=== PATIENT | female | born 1995 | race Caucasian/White ===

== ENCOUNTER 2023-06-20 02:13 | Emergency (ER) | payer SELFPAY ==
[2023-06-20] VITALS (10 sets, daily range): BP systolic 97–113; BP diastolic 60–71; PULSE 78–105; RESP 15–24; TEMP 36.8; O2SAT 97–99
[2023-06-20 02:37] LABS: Abs Immature Grans 0.02 10^3/uL (0.0-0.06); Absolute Basophil Count 0.02 10^3/uL (0.0-0.2); Absolute Eosinophil Count 0.02 10^3/uL (0.0-0.7); Absolute Lymphocyte Count 1.23 10^3/uL (1.2-3.4); Absolute Monocyte Count 0.46 10^3/uL (0.1-0.8); Absolute Neutrophil Count 5.82 10^3/uL (1.2-6.7); Basophils % 0.3; Eosinophils % 0.3; HCT 35.8 % (36.0-46.0); HGB 12.4 g/dL (11.2-15.7); Immature Grans % 0.3; Lymphocytes % 16.2; MCH 30.8 pg (27.0-33.0); MCHC 34.6 % (32.0-36.0); MCV 89 fL (80-95); MPV 9.9 fL (8.0-11.0); Monocytes % 6.1; Neutrophils % 76.8; Platelet Count 263 10^3/uL (130-400); RBC 4.02 10^6/uL (3.93-5.22); RDW 11.7 % (11.7-14.6); RDW-SD 37.4 fL; WBC 7.57 10^3/uL (4.4-10.8)
[2023-06-20 02:48] LABS: Bilirubin Negative (Negative); Blood Negative (Negative); Clarity Clear (Clear); Glucose Negative (Negative); Ketones Trace mg/dL (Negative); Leukocyte Esterase Negative (Negative); Nitrite Negative (Negative); Specific Gravity 1.015 (1.005-1.025); Urobilinogen 0.2 mg/dL (Up to 0.2)
[2023-06-20] MEDS: Ketorolac 15 MG/ML VIAL IM (02:52)
[2023-06-20] MEDS: Normal Saline 1,000 ML 1000 ML IV (02:52)
[2023-06-20] MEDS: Ondansetron 4 MG/2 ML VIAL IVP (02:53)
[2023-06-20 03:03] LABS: ALT 31 U/L (14-59); AST 28 U/L (15-37); Albumin 4.3 g/dL (3.4-5.0); Alkaline Phosphatase 64 U/L (46-116); Anion Gap 12.7 mmol/L (3-11); BUN 15 mg/dL (7-18); CO2 24.3 mmol/L (21.0-32.0); CREATININE 0.8 mg/dL (0.55-1.02); Calcium 9.4 mg/dL (8.5-10.1); Chloride 104 mmol/L (98-107); Glucose 106 mg/dL (74-106); HCG Quant, Pregnancy 3 mIU/mL (1-3); Potassium 3.6 mmol/L (3.5-5.1); Sodium 141 mmol/L (136-145); Total Protein 8.1 g/dL (6.4-8.2)
--- NOTE | 2023-06-20 03:15 | W.ED.GENAD ---
Discharge Plan Disposition Patient Disposition: Home Condition: Good Discharge Details Clinical Impression: Abdominal pain ED Provider: Tootie Mims Discharge Instructions Instructions: Abdominal Pain (ED) Additional Instructions: Take tylenol and ibuprofen over the counter as needed for abdominal cramping. You can also try heat packs. Call your primary care doctor today to schedule an appointment to followup on your visit here. Return to the emergency department for new or worsening symptoms, including if your pain returns, you begin vomiting again while not intoxicated, or if you have any other concerns. Medical Decision Making 27yo previously healthy female presenting with lower abdominal cramping described as like bad period cramps starting this evening while at a wedding and drinking heavily. Also has N/V which she attributes to drinking. History from patient, at bedside, and EMS. Given 1g of tylenol by EMS during transport. Miscarried at approximately 10 weeks gestation roughly 4 weeks ago; had vaginal bleeding for ~ 10 days after that with no vaginal bleeding or discharge since then. Slightly tachycardiac, vital signs otherwise reassuring. Clinical intoxicated on exam, benign abdominal exam with no tenderness. Given IVFB and zofran for N/V (likely 2/t intoxication) and toradol for cramping. With benign abdominal exam will hold off on CT or US imaging; low suspcion for acute intrabdominal or intrapelvic pathology including appendicitis, obstruction, ectopic , ovarian cyst/torsion, etc. Labs as below, CBC & CMP reassuring, UA negative for infection, bHCG negative. On reassessment she reports feeling much better, no further vomiting, pain improved significantly. Repeat abdominal exam with no tenderness. Patient requesting discharge home which is reasonable. Sober friend arrived to bedside to drive them home. Ambulated out of department with steady gait. Discharged home; discharge instructions including return precautions were reviewed with patient who verbalized understanding. All questions were answered and they are in full agreement with the plan. Lab Data Lab results reviewed: Yes I reviewed the patient's lab results. Labs: Laboratory Tests Range/Units 06/20/23 06/20/23 06/20/23 02:30 02:30 02:38 WBC (4.4-10.8) 10^3/uL 7.57 RBC (3.93-5.22) 10^6/uL 4.02 Hgb (11.2-15.7) g/dL 12.4 Hct (36.0-46.0) % 35.8 L MCV (80-95) fL 89 MCH (27.0-33.0) pg 30.8 MCHC (32.0-36.0) % 34.6 RDW (11.7-14.6) % 11.7 Plt Count (130-400) 10^3/uL 263 MPV (8.0-11.0) fL 9.9 Immature Gran % 0.3 Neutrophils % 76.8 Lymphocytes % 16.2 Monocytes % 6.1 Eosinophils % 0.3 Basophils % 0.3 Nucleated RBC % (0.0-0.3) % 0.0 Absolute Neutrophils (1.2-6.7) 10^3/uL 5.82 Absolute Lymphocytes (1.2-3.4) 10^3/uL 1.23 Absolute Monocytes (0.1-0.8) 10^3/uL 0.46 Absolute Eosinophils (0.0-0.7) 10^3/uL 0.02 Absolute Basophils (0.0-0.2) 10^3/uL 0.02 Sodium (136-145) mmol/L 141 Potassium (3.5-5.1) mmol/L 3.6 Chloride (98-107) mmol/L 104 Carbon Dioxide (21.0-32.0) mmol/L 24.3 Anion Gap (3-11) mmol/L 12.7 H BUN (7-18) mg/dL 15 Creatinine (0.55-1.02) mg/dL 0.8 Est GFR (CKD-EPI 2020) (mL/min/1.73m2) 104.80 Glucose (74-106) mg/dL 106 Calcium (8.5-10.1) mg/dL 9.4 Total Bilirubin (0.2-1.0) mg/dL 1.0 AST (15-37) U/L 28 ALT (14-59) U/L 31 Alkaline Phosphatase (46-116) U/L 64 Total Protein (6.4-8.2) g/dL 8.1 Albumin (3.4-5.0) g/dL 4.3 Beta HCG, Quant (1-3) mIU/mL 3 Urine Color (Yellow) Yellow Urine Clarity (Clear) Clear Urine pH (5-8) 6.0 Ur Specific [place] (1.005-1.025) 1.015 Urine Protein (Negative) mg/dL Negative Urine Ketones (Negative) mg/dL Trace H Urine Blood (Negative) Negative Urine Nitrite (Negative) Negative Urine Bilirubin (Negative) Negative Urine Urobilinogen (Up to 0.2) mg/dL 0.2 Ur Leukocyte Esterase (Negative) Negative Urine Glucose (Negative) mg/dL Negative HPI General Mode of arrival: EMS. Date/Time Provider Initiated Documentation: 06/20/23 02:18. Limitations to Documentation: no limitations. Information obtained by: patient, family and EMS. HPI Narrative: 27yo previously healthy female presenting with lower abdominal cramping described as like bad period cramps starting this evening. Pain is severe, crampy, and comes in waves. Received 1g of tylenol from EMS during transport. Miscarried at approximately 10 weeks gestation roughly 4 weeks ago; had vaginal bleeding for ~ 10 days after that with no vaginal bleeding or discharge since then. Symptoms started while out at a wedding; has been drinking (4+ glasses of wine). Some nausea & vomiting tonight which attributes to drinking. She is otherwise in her usual state of health with no fevers, chill, rash, dysuria, hematuria, upper abdominal pain, or other concerns. Related Data Allergies Allergy/AdvReac Type Severity Reaction Status Date / Time No Known Allergies Allergy Verified 06/20/23 02:23 General Stated Complaint: Abd Prob JEANNIE: 3 Review of Systems Narrative: see HPI PFSH All Active Problems (Updated 06/20/23 @ 03:44 by Tootie Mims MD) Abdominal pain (Acute) Social History Smoking/Tobacco Use Status: Current every day Tobacco Type: e-cigarettes Smoking risk assessment performed?: Yes Alcohol Intake: current Alcohol Intake frequency: a few times a month Alcohol type: wine Drug use: Never Substance use type: does not use Do you feel safe at home: Yes Do you feel safe in your relationship?: Yes Exam Narrative Exam Narrative: General: Alert, well appearing, in no acute distress. Clinically intoxicated. Head: Normocephalic, atraumatic Neck: Trachea midline, Neck supple. ENT: MMM. No oropharygeal lesions or exudate. Cardiac: RRR, no murmurs appreciated Resp: No respiratory distress. CTAB. Abd: Soft, non-distended, nontender. : No suprapubic tenderness. No CVA tenderness. Extremities: No deformities. No peripheral edema. Neurologic: GCS 15. Moves all extremities freely against gravity Course Vital Signs Vital signs: Vital Signs Temperature 36.8 C 06/20/23 02:14 Pulse 97 H 06/20/23 02:14 Respiratory Rate 16 06/20/23 02:14 Blood Pressure 107/69 06/20/23 02:14 Pulse Oximetry 97 06/20/23 02:14 Temperature 36.8 C 06/20/23 02:14 Temperature Source Oral 06/20/23 02:14 Pulse 97 H 06/20/23 02:14 Respiratory Rate 16 06/20/23 02:14 Respiratory Effort Normal, Non-Labored 06/20/23 02:18 Blood Pressure 107/69 06/20/23 02:14 Blood Pressure Position Supine 06/20/23 02:14 Pulse Oximetry 97 06/20/23 02:14 Oxygen Delivery Method Room Air 06/20/23 02:14 Oxygen Flow Rate 0 06/20/23 02:14 Pain Level 8 06/20/23 02:14 Lab/Test Results Lab/Test Results: Laboratory Tests Range/Units 06/20/23 06/20/23 06/20/23 02:30 02:30 02:38 WBC (4.4-10.8) 10^3/uL 7.57 RBC (3.93-5.22) 10^6/uL 4.02 Hgb (11.2-15.7) g/dL 12.4 Hct (36.0-46.0) % 35.8 L MCV (80-95) fL 89 MCH (27.0-33.0) pg 30.8 MCHC (32.0-36.0) % 34.6 RDW (11.7-14.6) % 11.7 Plt Count (130-400) 10^3/uL 263 MPV (8.0-11.0) fL 9.9 Immature Gran % 0.3 Neutrophils % 76.8 Lymphocytes % 16.2 Monocytes % 6.1 Eosinophils % 0.3 Basophils % 0.3 Nucleated RBC % (0.0-0.3) % 0.0 Absolute Neutrophils (1.2-6.7) 10^3/uL 5.82 Absolute Lymphocytes (1.2-3.4) 10^3/uL 1.23 Absolute Monocytes (0.1-0.8) 10^3/uL 0.46 Absolute Eosinophils (0.0-0.7) 10^3/uL 0.02 Absolute Basophils (0.0-0.2) 10^3/uL 0.02 Sodium (136-145) mmol/L 141 Potassium (3.5-5.1) mmol/L 3.6 Chloride (98-107) mmol/L 104 Carbon Dioxide (21.0-32.0) mmol/L 24.3 Anion Gap (3-11) mmol/L 12.7 H BUN (7-18) mg/dL 15 Creatinine (0.55-1.02) mg/dL 0.8 Est GFR (CKD-EPI 2020) (mL/min/1.73m2) 104.80 Glucose (74-106) mg/dL 106 Calcium (8.5-10.1) mg/dL 9.4 Total Bilirubin (0.2-1.0) mg/dL 1.0 AST (15-37) U/L 28 ALT (14-59) U/L 31 Alkaline Phosphatase (46-116) U/L 64 Total Protein (6.4-8.2) g/dL 8.1 Albumin (3.4-5.0) g/dL 4.3 Beta HCG, Quant (1-3) mIU/mL 3 Urine Color (Yellow) Yellow Urine Clarity (Clear) Clear Urine pH (5-8) 6.0 Ur Specific [place] (1.005-1.025) 1.015 Urine Protein (Negative) mg/dL Negative Urine Ketones (Negative) mg/dL Trace H Urine Blood (Negative) Negative Urine Nitrite (Negative) Negative Urine Bilirubin (Negative) Negative Urine Urobilinogen (Up to 0.2) mg/dL 0.2 Ur Leukocyte Esterase (Negative) Negative Urine Glucose (Negative) mg/dL Negative PAWSS Have you Been Recently Intoxicated or Drunk Within the Last 30 days?: No Have you Ever Experienced Previous Episodes of Alcohol Withdrawal?: No Have you ever Experienced Withdrawal Seizures?: No Have you ever Experienced Delirium Tremens(DT)s?: No Have you ever undergone Alcohol Rehabilitation Treatment (i.e, inpt ot outpatient treatment programs)?: No Have you ever Experienced Blackouts?: No Have you ever Combined Alcohol with other Downers within the last 90 days?: No Have you ever Combined Alcohol with any other Substance of Abuse during the last 90 days?: No Positive Blood Alcohol level on Presentation? [PCS.BAL]: No Evidence of Increased Autonomic Activity (i.e. HR>120, tremor, sweating, agitation, nausea)?: No Result: 0
== END 2023-06-20 04:08 | disposition home or self-care (01) ==
PROVIDERS: Emergency Provider Student in an Organized Health Care Education/Training Program
DX: R10.9 Unspecified abdominal pain (principal)
CPT/HCPCS: 36415; 80053; 96361; 96372; 96374; 99284; 81003; 84702; 85025; J1885; J2405